=== PATIENT | female | born 2000 | race Caucasian/White ===

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

== ENCOUNTER → 2020-06-19 | Outpatient (CLI) | payer OTHER ==
--- NOTE | 2020-06-19 09:45 | RADIOLOGY REPORT (SQ) ---
EXAM DESCRIPTION: U/S ABDOMEN COMPLETE W/O DOP IMAGES COMPLETED DATE/TIME: 06/19/2020 8:42 am REASON FOR STUDY: ANEMIA (D64.9), THROMBOCYTOPENIA (D69.6), LYMPHOCYTOSIS (D72.820) D69.6 THROMBOCY TOPENIA, UNSPECIFIED COMPARISON: None. TECHNIQUE: Dynamic and static grayscale images acquired of the abdomen and recorded on PACS. Additio nal selected color Doppler and spectral images recorded. Note: Study does not meet criteria for complete doppler/duplex scan LIMITATIONS: None. FINDINGS: PANCREAS: No masses. Visualized pancreatic duct normal caliber. LIVER: No masses. Echotexture normal. LIVER VASCULATURE: Normal directional flow of the main portal vein and hepatic veins. GALLBLADDER: No stones. Normal wall thickness. No pericholecystic fluid. ULTRASOUND-DETECTED JOHNSON'S SIGN: Negative. INTRAHEPATIC DUCTS AND COMMON DUCT: CBD and intrahepatic ducts normal caliber. No filling defects. INFERIOR VENA CAVA: Normal flow. AORTA: No aneurysm. RIGHT KIDNEY: Normal size measuring 9.8 cm. Normal echogenicity. No solid or suspicious masses. No hydronephrosis. No calcifications. LEFT KIDNEY: Normal size measuring 9.7 cm. Normal echogenicity. No solid or suspicious masses. Mild fullness of the renal pelvis. No caliceal dilation. No calcifications. SPLEEN: Normal size measuring 11.3 cm. No solid masses. PERITONEAL AND PLEURAL SPACES: No ascites or effusions. OTHER: Partially visualized gravid uterus. heart tones of 143 beats per minute. IMPRESSION: 1. Partially visualized living intrauterine . 2. Otherwise, unremarkable abdominal ultrasound as visualized. TECHNICAL DOCUMENTATION: JOB ID: [id number] [employer]- All Rights Reserved Reading location - IP/workstation name: [email or web address]
== END ==
LOC: RAD 08:11
PROVIDERS: ATTEND Internal Medicine
DX: D69.6 Thrombocytopenia, unspecified (principal); D64.9 Anemia, unspecified; D72.820 Lymphocytosis (symptomatic)
CPT/HCPCS: 76700